=== PATIENT | female | born 1965 | race Caucasian/White ===

== ENCOUNTER → 2021-10-05 | Outpatient (CLI) | payer MEDICAID ==
[~2021-10-05] MED LIST: ATOR40TA70 MT; METF-415 PO; OMEP20CA14 MT
== END | disposition home or self-care (01) ==
LOC: LAB 10:56
PROVIDERS: ATTEND Ophthalmology
DX: Z01.812 Encounter for preprocedural laboratory examination (principal); Z20.822 Contact with and (suspected) exposure to COVID-19
CPT/HCPCS: 87426

== ENCOUNTER → 2021-10-06 | Day surgery (SDC) | payer MEDICAID ==
[~2021-10-06] VITALS: Ht 157.5 cm; Wt 54.4 kg
[~2021-10-06] MED LIST changes: +BALANCED SALT IRRIG SOLN 15ML ONE; +BALANCED SALT IRRIG SOLN COMB1 500ML OP ONE; +CIPROFLOXACIN 0.3% OPHTH SOLN 2.5ML ONE; +CYCLOPENTOLATE HCL 1% OPHTH DROPS 2ML RIGHTEYE NR; +FENTANYL CITRATE/PF 50MCG/ML 2ML VIAL ONE; +HYALURONATE SODIUM 10 MG/ML 0.55ML SYRINGE IO ONE; +LIDOCAINE HCL/PF 2% 20 MG/ML 10ML VIAL ONE; +MIDAZOLAM HCL 2 MG/2 ML VIAL ONE; +NEO/POLYMYX B SULF/DEXAMETH OPHTH OINT 3.5GM ONE; +PHENYLEPHRINE HCL 10% OPHTH DROPS 5ML RIGHTEYE NR; +PREDNISOLONE ACETATE 1% OPHTH DROPS 5ML ONE; +TETRACAINE 0.5% OPHTH DROPS 4ML ONE; +TROPICAMIDE 1% OPHTH DROPS 15ML ONE; +TROPICAMIDE 1% OPHTH DROPS 15ML RIGHTEYE ONE; +TRYPAN BLUE 0.5 ML DISP.SYRIN IO ONE
== END | disposition home or self-care (01) ==
LOC: OR 05:54 → EDUNIT# 09:00
PROVIDERS: ATTEND Ophthalmology
DX: E11.36 Type 2 diabetes mellitus with diabetic cataract (principal); H25.21 Age-related cataract, morgagnian type, right eye; I10 Essential (primary) hypertension; K21.9 Gastro-esophageal reflux disease without esophagitis; E78.5 Hyperlipidemia, unspecified; Z79.84 Long term (current) use of oral hypoglycemic drugs; Z79.899 Other long term (current) drug therapy; Z98.890 Other specified postprocedural states
CPT/HCPCS: 66984; 82962; J2250; J3010; J3490; Q9957; V2632

== ENCOUNTER → 2021-11-24 | Day surgery (SDC) | payer MEDICAID ==
[~2021-11-24] VITALS: Ht 157.5 cm; Wt 54.4 kg
[~2021-11-24] MED LIST changes: -BALANCED SALT IRRIG SOLN COMB1 500ML OP ONE; +CYCLOPENTOLATE HCL 1% OPHTH DROPS 2ML LEFTEYE NR; +CYCLOPENTOLATE HCL 1% OPHTH DROPS 2ML ONE; -CYCLOPENTOLATE HCL 1% OPHTH DROPS 2ML RIGHTEYE NR; +PHENYLEPHRINE HCL 10% OPHTH DROPS 5ML LEFTEYE NR; +PHENYLEPHRINE HCL 10% OPHTH DROPS 5ML ONE; -PHENYLEPHRINE HCL 10% OPHTH DROPS 5ML RIGHTEYE NR; +TROPICAMIDE 1% OPHTH DROPS 15ML LEFTEYE NR; -TROPICAMIDE 1% OPHTH DROPS 15ML RIGHTEYE ONE
[2021-11-24 07:56] LABS: EOSINOPHILS % 0.4 % (0.0-5.0); HEMOGLOBIN. 14.2 g/dL (12.0-16.0); LYMPHOCYTES % 16.3 % (20.0-50.0); MEAN CORPUSCULAR HEMOGLOBIN 30.9 pg (28.0-32.0); MEAN CORPUSCULAR VOLUME 91.8 fL (81.0-99.0); MONOCYTES % 5.1 % (2.0-8.0); NEUTROPHILS % 77.2 % (40.0-76.0); PLATELET 247 x1000/uL (130-400); RED BLOOD CELL COUNT 4.58 mill/uL (4.2-5.4); RED CELL DISTRIBUTION WIDTH 14.1 % (11.6-14.6)
[2021-11-24 08:03] LABS: CHLORIDE 102 mEq/L (98-107)
== END | disposition home or self-care (01) ==
LOC: OR 06:52
PROVIDERS: ATTEND Ophthalmology
DX: E11.36 Type 2 diabetes mellitus with diabetic cataract (principal); H25.22 Age-related cataract, morgagnian type, left eye; I10 Essential (primary) hypertension; E78.00 Pure hypercholesterolemia, unspecified; K21.9 Gastro-esophageal reflux disease without esophagitis; Z79.82 Long term (current) use of aspirin; Z79.84 Long term (current) use of oral hypoglycemic drugs; Z79.899 Other long term (current) drug therapy; Z98.890 Other specified postprocedural states; Z20.822 Contact with and (suspected) exposure to COVID-19
CPT/HCPCS: 36415; 66984; 80048; 82962; 85025; 87426; J2250; J3010; J3490; Q9957; V2632